=== PATIENT | female | born 1995 | race Two or more races ===

== ENCOUNTER 2024-12-04 11:13 | Outpatient (CLI) | payer SELFPAY ==
[2024-12-04 11:58] VITALS: BMI 35.2
[2024-12-04 12:01] LABS: Microscopic, Urine URINE MICROSCOPIC (MICROSCOPIC)
[2024-12-04 12:06] LABS: Appearance,Urine SL CLOUDY (Clear); Bilirubin,Urine Negative (Negative); Blood, Urine Negative (Negative); Color,Urine YELLOW (Yellow); Glucose,Urine (UA) Negative (Negative); Ketones,Urine Negative (Negative); Leukocyte Esterase,Urine Negative (Negative); Nitrate,Urine Negative (Negative); Protein,Urine Negative (Negative); Specific Gravity, Urine 1.015 (1.005-1.030); Urobilinogen,Urine 0.2 EU/dl (0.2)
--- NOTE | 2024-12-04 12:20 | US_ITS ---
PROCEDURE: US OB >= 14 WEEKS FETUS CLINICAL INDICATION: vaginal bleeding, new patient COMPARISON: No exams were available for comparison FINDINGS: Transabdominal sonographic images of the pelvis were obtained. The following parameters are obtained: From her established due date she is 16weeks 3days Viable fetus in the cephalic presentation with an anterior placenta grade 1. The cervix measures 4.68 cm heart rate: 150bpm bpm. Average ultrasound age 16 weeks 5 days BPD: 16weeks 3days HC: 16weeks 4days AC: 16weeks 5days FL: 16weeks 6days HC/AC: 1.19 FL/BPD: 0.68 FL/AC: 0.21 Growth percentile: Amniotic fluid: MVP 2.84 cm No obvious anomalies evident. profile seen, stomach, bladder, kidneys, three-vessel cord, four chamber heart appear normal. IMPRESSION: 1. Viable fetus in the cephalic presentation with an anterior placenta grade 1. 2. The fluid is within normal limits with an MVP 2.84 cm. 3. Limited anatomical scan appears normal. 4. No obvious cause for vaginal bleeding. No placenta previa. 5. biometry is consistent with the dates. Suggest repeat scan in 4 weeks for complete anatomy. Dictated by: Ab Constantino MD 12/04/2024 13:35 Ab Constantino MD in [facility] 12/04/2024 13:35
[2024-12-04 12:25] LABS: Bacteria,Urine Trace /lpf
[2024-12-04 12:27] LABS: Phencyclidine Screen,Urine Negative ng/ml (<25)
[2024-12-04 12:32] LABS: Amphetamine/Metha Screen,Urine Negative ng/ml (<1000)
[2024-12-04 12:33] LABS: Barbiturates Screen,Urine Negative ng/ml (<200); Benzodiazepines Screen,Urine Negative ng/ml (<200)
[2024-12-04 12:34] LABS: Cannabinoid Screen,Urine Negative ng/ml (<50)
[2024-12-04 12:37] LABS: Cocaine Screen,Urine Negative ng/ml (<300)
[2024-12-04 12:38] LABS: Methadone Screen,Urine Negative ng/ml (<300); Opiate Screen,Urine Negative ng/ml (<300)
[2024-12-04 12:47] VITALS: BP 110/70; PULSE 77; RESP 17; TEMP 36.7; O2SAT 98; BMI 35.2
[2024-12-04 13:33] LABS: HIV 1 Ab ND; HIV 2 Ab ND
[2024-12-04 13:34] LABS: Basophils % 0.3 % (0.1-2.0); Eosinophils # 0.1 Kmm3 (0.0-0.4); Eosinophils % 1.8 % (0.1-12.0); Hematocrit 39.6 % (37.0-47.0); Hemoglobin 12.8 g/dL (12.2-16.2); Immature Granulocytes # 0.03 10^3uL; Immature Granulocytes % 0.5 %; Lymphocytes # 1.3 K/mm3 (0.7-4.5); Mean Corpuscular HGB Conc 32.3 g/dL (31.8-35.4); Mean Corpuscular Hemoglobin 27.5 pg (27.0-31.2); Mean Platelet Volume 9.3 fl (7.4-10.4); Monocytes # 0.3 K/mm3 (0.1-1.0); Monocytes % 5.3 % (1.7-9.3); Neutrophils # 4.5 K/mm3 (1.8-7.8); Neutrophils % 72.1 % (37.0-80.0); Nucleated Red Blood Cells # 0 10^3/uL; Nucleated Red Blood Cells % 0 %; Platelet Count 262 K/mm3 (142-424); Red Blood Count 4.66 M/mm3 (4.20-5.40); Red Cell Distribution Width 13.1 % (11.5-17.5); Red Cell Distribution Width-SD 40.3 fL; White Blood Count 6.3 K/mm3 (4.8-10.8)
[2024-12-05 09:13] LABS: HIV Screen 4th Generation wRfx Non Reactive (Non Reactive); Hepatitis B Surface Antigen Negative (Negative); Hepatitis C Antibody Non Reactive (Non Reactive); Rubella Antibodies, IgG 1.07 index (Immune >0.99); Varicella Zoster IgG Reactive (Non Reactive)
[2024-12-05 12:18] LABS: Rapid Plasma Reagin Ab Titer Non Reactive titer (NonRea<1:1)
== END 2024-12-04 13:55 | disposition home or self-care (01) ==
LOC: OBOUT 11:25 → OB 11:27
PROVIDERS: Visit Provider Obstetrics & Gynecology
DX: O46.92 Antepartum hemorrhage, unspecified, second trimester (principal); O26.892 Other specified pregnancy related conditions, second trimester; R10.9 Unspecified abdominal pain; Z3A.16 16 weeks gestation of pregnancy
CPT/HCPCS: 36415; 76805; 80307; 81001; 85025; 86593; 86762; 86787; 86803; 86850; 87340; 99212; G0463

== ENCOUNTER 2025-01-11 12:36 | Outpatient (CLI) | payer SELFPAY ==
--- NOTE | 2025-01-11 13:00 | US_ITS ---
PROCEDURE: US OB >= 14 WEEKS FETUS CLINICAL INDICATION: 20 week Anatomy Scan COMPARISON: US US OB >= 14 WEEKS FETUS from 12/04/2024 FINDINGS: Transabdominal sonographic images of the pelvis were obtained. From her established due date she is 21 weeks 6 days. Single viable intrauterine gestation. Breech position. Placenta: Anteriorplacenta grade 1. There is an average amount of fluid. The cervix appears satisfactory. Closed and measuring 4.0 cm in length. Complete survey performed and was unremarkable on the submitted images as in PACS. No discrete anomalies identified on survey imaging by technologist. Active fetus. Three-vessel cord with satisfactory umbilical cord insertion. 4- chamber heart noted. Situs, aortic arch, LVOT, RVOT, three-vessel view appear normal. Survey of brain & ventricles Unremarkable. Cerebellum, thalamus, choroid plexus, cisterna magna appear normal. Face and neck survey unremarkable. Profile, nasion, lips and nose appeared normal. Diaphragm and chest views unremarkable. Abdomen: Both kidneys noted and unremarkable. Stomach and bladder noted and satisfactory. Spine: Survey of the spine satisfactory with no anomalies identified nor imaged. Cervical, thoracic, lower spine appear normal. Both arms and legs noted. Amniotic Fluid: Adequate. MVP 8.81 cm. Measurements: Average ultrasound age 21weeks 3days. Estimated due date by ultrasound age 1105/21/2025. Estimated weight 470g BPD = 20weeks 0 days HC = 20weeks 4days AC = 22weeks 2days FL = 22weeks 4days Growth Percentile= 53 Heart Rate = 160bpm Cerebellum = 20weeks 4days Humerus = 23weeks 3days HC/AC is 1.05 FL/BPD is 0.84 FL/AC is 0.23 IMPRESSION: 1. Viable fetus in the breech presentation with an anterior placenta grade 1. 2. The fluid is within normal limits with an MVP 8.81 cm. 3. Anatomical scan appears normal. 4. head appears somewhat small and would suggest follow-up in 6- 8 weeks. Dictated by: Ab Constantino MD 01/12/2025 08:37 Ab Constantino MD in [facility] 01/12/2025 08:37
== END 2025-01-11 23:59 | disposition home or self-care (01) ==
LOC: RAD 12:37
PROVIDERS: PCP Obstetrics & Gynecology; Visit Provider Obstetrics & Gynecology
DX: O32.1XX0 Maternal care for breech presentation, not applicable or unspecified (principal); O36.5920 Maternal care for other known or suspected poor fetal growth, second trimester, not applicable or unspecified; Z36.3 Encounter for antenatal screening for malformations; Z3A.21 21 weeks gestation of pregnancy
CPT/HCPCS: 76805

== ENCOUNTER 2025-02-22 13:04 | Outpatient (CLI) | payer SELFPAY ==
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
== END 2025-02-22 23:59 | disposition home or self-care (01) ==
LOC: RAD 13:06
PROVIDERS: Visit Provider Obstetrics & Gynecology
DX: Z34.82 Encounter for supervision of other normal pregnancy, second trimester (principal); R10.11 Right upper quadrant pain; Z3A.27 27 weeks gestation of pregnancy
CPT/HCPCS: 76816

== ENCOUNTER 2025-03-14 10:47 | Outpatient (CLI) | payer SELFPAY ==
[2025-03-14 12:31] LABS: Hematocrit 34.8 % (37.0-47.0); Hemoglobin 11.5 g/dL (12.2-16.2); Immature Granulocytes % 0.4 %; Mean Corpuscular HGB Conc 33.0 g/dL (31.8-35.4); Mean Corpuscular Hemoglobin 28.1 pg (27.0-31.2); Mean Corpuscular Volume 85.1 fl (81-99); Nucleated Red Blood Cells % 0 %; Platelet Count 326 K/mm3 (142-424); Red Blood Count 4.09 M/mm3 (4.20-5.40); Red Cell Distribution Width-SD 38.5 fL; White Blood Count 5.0 K/mm3 (4.8-10.8)
[2025-03-14 13:41] LABS: Glucose 1 Hour 124 mg/dL (74-100)
[2025-03-14 14:41] LABS: RPR W/RFX Titers Nonreactive (Nonreactive)
== END 2025-03-14 23:59 | disposition home or self-care (01) ==
LOC: LAB 10:47
PROVIDERS: Visit Provider Obstetrics & Gynecology
DX: Z34.90 Encounter for supervision of normal pregnancy, unspecified, unspecified trimester (principal); Z3A.00 Weeks of gestation of pregnancy not specified
CPT/HCPCS: 36415; 82947; 85025; 86592

== ENCOUNTER 2025-03-20 16:09 | Observation (INO) | payer SELFPAY ==
[2025-03-20] VITALS (11 sets, daily range): BP systolic 102–147; BP diastolic 53–73; PULSE 74–98; RESP 15–22; TEMP 36.9–37.2; O2SAT 94–100; BMI 41.3; BMI 36.3
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
[2025-03-20 16:35] LABS: Hematocrit 36.8 % (37.0-47.0); Hemoglobin 12.3 g/dL (12.2-16.2); Immature Granulocytes % 1.4 %; Mean Corpuscular HGB Conc 33.4 g/dL (31.8-35.4); Mean Corpuscular Hemoglobin 28.1 pg (27.0-31.2); Mean Corpuscular Volume 84.2 fl (81-99); Nucleated Red Blood Cells % 0 %; Platelet Count 364 K/mm3 (142-424); Red Blood Count 4.37 M/mm3 (4.20-5.40); Red Cell Distribution Width-SD 38.5 fL; White Blood Count 6.6 K/mm3 (4.8-10.8)
[2025-03-20 16:36] LABS: VBG HCO3 20.9 mmol/L (23-30); VBG PCO2 33.1 mmol/L (35-51); VBG PH 7.42 mmol/L (7.31-7.41); VBG PO2 74.4 mmol/L (28-40)
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
[2025-03-20 16:39] LABS: Lactate Venous 2.3 mmol/L (0.4-2.0)
[2025-03-20 16:42] LABS: Albumin Level 3.8 g/dl (3.5-5.0); Chloride 105 mmol/L (98-107); Potassium 3.6 mmoL/L (3.5-5.1); Sodium 135 mmol/L (136-145)
[2025-03-20 16:44] LABS: Activated Partial Thrombo Time 26.4 seconds (22.8-30.6); Blood Urea Nitrogen 5 mg/dl (7-17); Creatinine Clearance Estimated 175 mL/min (50-200); Creatinine,Serum 0.40 mg/dl (0.52-1.04); Estimated Glomerular Filt Rate 191 ml/min (>60); GFR (African American) 232 ML/MIN (>60); INR 0.96 (0.9-1.1); Prothrombin Time 10.7 seconds (10.1-12.5)
[2025-03-20 16:45] LABS: Alanine Aminotransferase 20 U/L (12-78); Albumin/Globulin Ratio 1.2 (1.1-1.8); Alkaline Phosphatase 90 U/L (38-126); Anion Gap 12.6 mEq/L (5-15); Aspartate Amino Transferase 41 U/L (14-36); Bilirubin,Total 0.3 mg/dl (0.2-1.3); Calcium 9.2 mg/dl (8.4-10.2); Carbon Dioxide 21 mmol/L (22.0-30.0); Globulin 3.2 g/dL (1.3-3.2); Glucose 138 mg/dl (74-100); Lipase 82 U/L (23-300); Magnesium 1.4 mg/dl (1.6-2.3); Total Protein,Serum 7.0 g/dl (6.3-8.2)
[2025-03-20] MEDS: SODIUM CHLORIDE 0.9% 10ML SYR (RAD ONLY) 10 ML IV (16:49)
[2025-03-20] MEDS: 0.9 % SODIUM CHLORIDE 50 ML VIAL IV (16:49)
[2025-03-20] MEDS: IOPAMIDOL-370 (76%);100ML BOTTLE 140 ML IV (16:50)
[2025-03-20 16:57] LABS: Troponin I < 0.01 ng/ml (0.00-0.034)
[2025-03-20] MEDS: MORPHINE 4MG/ML SYRINGE 4 MG IV (17:02)
[2025-03-20] MEDS: ONDANSETRON 4MG/2ML VIAL 4 MG IV (17:02)
[2025-03-20] MEDS: LACTATED RINGERS 1000ML 1,000 ML 999 ML IV (17:06)
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
--- NOTE | 2025-03-20 17:15 | ECG_ITS ---
APPROVED REPORT Exam: Resting ECG HR:85 bpm ECG Measurements Heart Rate 85 AXES KS 139 P 22 QRSd 84 QRS 30 QT 361 T 9 QTc 403 Conclusion SINUS RHYTHM NONSPECIFIC T-WAVE ABNORMALITY BORDERLINE ECG UNCONFIRMED REPORT Electronically signed by : FLAKITO HINKLE, 03/21/2025 06:39:06
[2025-03-20 18:06] LABS: Amphetamine/Metha Screen,Urine Negative ng/ml (<1000)
[2025-03-20 18:07] LABS: Barbiturates Screen,Urine Negative ng/ml (<200); Benzodiazepines Screen,Urine Negative ng/ml (<200)
[2025-03-20 18:10] LABS: Methadone Screen,Urine Negative ng/ml (<300); Opiate Screen,Urine Positive ng/ml (<300)
[2025-03-20 18:11] LABS: Phencyclidine Screen,Urine Negative ng/ml (<25)
--- NOTE | 2025-03-20 18:30 | PC.NURSE ---
OB RN at bedside. Heart tones noted 140-150's good accelerations noted during monitoring. One contraction noted during 10 minute period. Patient denies feeling contraction. Abdomen soft on palpation.
[2025-03-20] MEDS: ACETAMINOPHEN 500MG TAB 1000 MG PO (18:44)
--- NOTE | 2025-03-20 19:01 | PC.NURSE ---
paged OB at this time.
--- NOTE | 2025-03-20 19:08 | PC.NURSE ---
call made to [facility] for bed assignment
--- NOTE | 2025-03-20 19:08 | PC.NURSE ---
house called for bed
--- NOTE | 2025-03-20 19:43 | PC.NURSE ---
Report given to Eloy RN
[2025-03-20] MEDS: LACTATED RINGERS 1000ML 1,000 ML 80 ML IV (20:00)
[2025-03-20 20:30] LABS: Reflex Lactic Add Lactic Reflex
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
[2025-03-20 21:15] LABS: Lactic Acid Follow Up (RFLX 1) 1.2 mmol/L (0.7-2.1)
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
[2025-03-21 11:02] LABS: Microscopic, Urine URINE MICROSCOPIC (MICROSCOPIC)
[2025-03-21 11:19] LABS: Bilirubin,Urine Negative (Negative); Color,Urine YELLOW (Yellow); Glucose,Urine (UA) Negative (Negative); Ketones,Urine Negative (Negative); Leukocyte Esterase,Urine 2+ (Negative); PH,Urine 5.5 (5.0-8.5); Protein,Urine Negative (Negative); Specific Gravity, Urine >= 1.030 (1.005-1.030); Urobilinogen,Urine 0.2 EU/dl (0.2)
[2025-03-21 11:27] LABS: Amorphous Sediment,Urine 1+ /lpf; Bacteria,Urine 3+ /lpf; Calcium Oxalate Crystals,Urine Trace /lpf; Squamous Epithelial Cell,Urine 20-50 #/hpf (0-5)
== END 2025-03-21 11:28 | disposition home or self-care (01) ==
LOC: ER 19:08 → OB 21:02
PROVIDERS: Admitting Provider Obstetrics & Gynecology; Emergency Provider Student in an Organized Health Care Education/Training Program; PCP Obstetrics & Gynecology; Visit Provider Obstetrics & Gynecology
DX: Z04.1 Encounter for examination and observation following transport accident (principal); V49.9XXA Car occupant (driver) (passenger) injured in unspecified traffic accident, initial encounter; Z87.59 Personal history of other complications of pregnancy, childbirth and the puerperium; Z3A.32 32 weeks gestation of pregnancy
CPT/HCPCS: 36415; 59025; 70450; 70496; 70498; 71045; 71275; 72125; 72128; 72131; 72170; 73552; 73562; 74174; 76819; 80053; 80307; 81001; 82803; 83605; 83690; 83735; 84484; 85025; 85610; 85730; 86850; 87086; 93005; 96361; 96374; 96375; 99285; G0378; G0390; J2270; J2405; J7120; Q9967

== ENCOUNTER 2025-04-11 11:00 | Outpatient (CLI) | payer SELFPAY | END 2025-04-11 23:59 | disposition home or self-care (01) | LOC: LAB.DROPOF 04-12 01:57 | PROVIDERS: PCP Obstetrics & Gynecology; Visit Provider Obstetrics & Gynecology | DX: Z34.93 Encounter for supervision of normal pregnancy, unspecified, third trimester (principal); R31.9 Hematuria, unspecified; R80.9 Proteinuria, unspecified; Z3A.00 Weeks of gestation of pregnancy not specified | CPT/HCPCS: 87086 ==

== ENCOUNTER 2025-04-17 11:31 | Outpatient (CLI) | payer SELFPAY | END 2025-04-17 23:59 | disposition home or self-care (01) | LOC: LAB.DROPOF 04-18 09:17 | PROVIDERS: PCP Obstetrics & Gynecology; Visit Provider Obstetrics & Gynecology | DX: Z34.93 Encounter for supervision of normal pregnancy, unspecified, third trimester (principal); Z3A.00 Weeks of gestation of pregnancy not specified | CPT/HCPCS: 86403 ==

== ENCOUNTER 2025-05-01 14:28 | Observation (INO) | payer SELFPAY ==
[2025-05-01 12:01] VITALS: BMI 37.8
[2025-05-01 12:19] LABS: Microscopic, Urine URINE MICROSCOPIC (MICROSCOPIC)
[2025-05-01 12:20] LABS: Bilirubin,Urine Negative (Negative); Color,Urine YELLOW (Yellow); Glucose,Urine (UA) Negative (Negative); Ketones,Urine Negative (Negative); Leukocyte Esterase,Urine 3+ (Negative); PH,Urine 6.5 (5.0-8.5); Protein,Urine Negative (Negative); Specific Gravity, Urine <= 1.005 (1.005-1.030); Urobilinogen,Urine 0.2 EU/dl (0.2)
[2025-05-01 12:21] VITALS: BP 125/81; PULSE 80; RESP 18; TEMP 36.7; O2SAT 98; BMI 37.8
[2025-05-01 12:35] LABS: Bacteria,Urine Trace /lpf
[2025-05-01 15:52] LABS: Hematocrit 40.6 % (37.0-47.0); Hemoglobin 13.5 g/dL (12.2-16.2); Immature Granulocytes % 0.3 %; Mean Corpuscular HGB Conc 33.3 g/dL (31.8-35.4); Mean Corpuscular Hemoglobin 28.1 pg (27.0-31.2); Mean Corpuscular Volume 84.4 fl (81-99); Nucleated Red Blood Cells % 0 %; Platelet Count 304 K/mm3 (142-424); Red Blood Count 4.81 M/mm3 (4.20-5.40); Red Cell Distribution Width-SD 42.4 fL; White Blood Count 6.2 K/mm3 (4.8-10.8)
[2025-05-01] MEDS: LACTATED RINGERS 1000ML 1,000 ML 999 ML IV (17:16)
--- NOTE | 2025-05-02 07:53 | P.HPDS_ITS ---
General Admission date:: 05/01/25 *Admission Date: 05/01/25 *Chief complaint: Contractions *History of present illness: Mikki Ruff is a very pleasant 29-year-old G2, P1 who presented to my office at 37 weeks and 6 days gestation with contractions and she is noted to make cervical change from 1 cm to 3 cm. Her contractions were very painful and she was sent to labor and delivery for evaluation. She endorsed good mo vement, denied leakage of fluid or vaginal bleeding. She has an ELIOT 05/16/2025 which is based on a 19-week ultrasound which was consistent with her last menstrual period. She has had 1 prior vaginal delivery. Her has been complicated by obesity and she is getting NSTs. She was scheduled for an induction on 05 09 with planned delivery on 05 10 at 39 weeks gestation. [facility] Disclaimer: The information contained in this section may have been updated after the patient was seen, as this information can be updated by other users. Medical History Maternal morbid obesity in first trimester, antepartum Hematuria with proteinuria Encounter for related examination in third trimester Right upper quadrant abdominal pain Encounter for supervision of other normal , second trimester Surgical History History of D&C Family History Other No significant family history Social History Smoking Status: Unknown if ever smoked alcohol intake: never current occupational status: unemployed Travel in the last 8 weeks?: None Other Medical History Have you received the Flu Vaccine for this season: No Have you received the Pneumonia Vaccine: No Review of Systems Review of Systems Review of systems (narrative): Review of Systems Constitutional: Denies fever, chills, and sweats Eyes: Denies vision change/ pain Respiratory: Denies cough and shortness of breath Cardiovascular: Denies chest pain and lightheadedness Gastrointestinal: Admits abdominal pain with contractions. Denies nausea, vomiting. Genitourinary: Denies dysuria and incontinence Musculoskeletal: Denies shoulder pain and back pain Neurological: Denies change in speech or headaches Exam Data for Last 24 hours Vital signs and Labs for Last 24 Hours: Temp Pulse Resp BP Pulse Ox O2 Del Method 98.1 F 80 18 125/81 98 Room Air 05/01/25 12:21 05/01/25 12:21 05/01/25 12:21 05/01/25 12:21 05/01/25 12:21 05/01/25 12:21 Laboratory Results - last 24 hr 05/01/25 12:13: Urine Color Yellow, Urine Appearance Sl cloudy, Urine pH 6.5, Ur Specific [place] <= 1.005, Urine Protein Negative, Urine Glucose (UA) Negative, Urine Ketones Negative, Urine Blood Trace-l, Urine Nitrate Negative, Urine Bilirubin Negative, Urine Urobilinogen 0.2, Ur Leukocyte Esterase 3+ A, Urine RBC None, Urine WBC 5-10, Ur Squamous Epith Cells 5-10, Urine Bacteria Trace 05/01/25 14:49: WBC 6.2, RBC 4.81, Hgb 13.5, Hct 40.6, MCV 84.4, MCH 28.1, MCHC 33.3, RDW 13.7, Plt Count 304, MPV 9.8, Neut % (Auto) 69.4, Lymph % (Auto) 22.8, [place] % (Auto) 5.3, Eos % (Auto) 1.9, Baso % (Auto) 0.3, Neut # (Auto) 4.3, Lymph # (Auto) 1.4, [place] # (Auto) 0.3, Eos # (Auto) 0.1, Baso # (Auto) 0.0 I & O for Last 24 hours: Intake & Output 04/29/25 04/30/25 05/01/25 05/02/25 23:59 23:59 23:59 23:59 Intake Total 1000 / 1000 Balance 1000 / 1000 Weight 220 lb Narrative: General: patient is alert oriented in no acute distress and responds appropriately to questions. HEENT: NCAT, EOMI, moist mucous membranes, neck supple with full ROM Cardiovascular: RRR +S1/S2, no murmurs or rubs Pulmonary: Clear to auscultation bilaterally, nonlabored breathing, symmetric chest rise Abdominal: Gravid abdomen appropriate for gestation. No guarding, rebound, or tenderness noted. Extremities: trace edema, no tenderness or cyanosis noted Skin: Normal turgor, intact, warm. Negative for erythema, pallor, petechia, or lesions Neurologic: Negative for sensory or motor deficit Psychiatric: Normal affect, normal thought process, good judgment and insight, no depression or anxious mood appreciated. *Routine HEENT Exam Head: Present normocephalic and atraumatic Eye: Present EOMI, PERRL and normal accommodation; Absent conjunctival icterus, scleral injection, nystagmus or exophthalmos ENT: Present mucous membranes moist *Routine Respiratory Exam Respiratory: Present CTA bilaterally, normal respiratory effort, able to speak in complete sentences and symmetric chest movement; Absent accessory muscle use, decreased breath sounds, rales, respiratory distress, wheezes, distant breath sounds or diminished air movement *Routine Cardiovascular Exam Cardiovascular: Present RRR, Normal S1 and Normal S2; Absent murmur or gallop *Routine Abdominal Exam Abdominal: Present soft and normoactive bowel sounds; Absent tenderness, distended, rebound or guarding *Routine Rectal Exam Rectal:: deferred *Routine Genitalia Exam Genitalia:: normal female Meds Home Medications and Allergies Home Medications ?Medication ?Instructions ?Recorded ?Confirmed ?Type vits no.126-ferrous fum See Rx Instructions . Route 04/11/25 05/01/25 Rx 28 mg iron-folic acid 800 mcg .COMPLEX #30 tabs tablet (Classic ) New Prescriptions to Start Prescriptions: Allergies Allergy/AdvReac Type Severity Reaction Status Date / Time No Known Allergies Allergy Verified 05/01/25 10:11 Hospital Course Hospital Course Hospital Course: Patient was admitted and observed, no cervical change noted and contractions were noted to physical out. Induction changed from an overnight induction from May 09 with planned delivery on the . The patient will come in on May 10 at 4 to 5:00 in the morning for Pitocin induction. Patient was made aware. Follow-up was given for May 07 in the office. Patient was given strict instructions to return with any increasing contractions, leakage of fluid, vaginal bleeding, or decreased movement. Patient voiced understanding Results Data Completed and Pending Labs on day of discharge: Labs from last 24 hours 05/01/25 05/01/25 14:49 12:13 WBC 6.2 RBC 4.81 Hgb 13.5 Hct 40.6 MCV 84.4 MCH 28.1 MCHC 33.3 RDW 13.7 Plt Count 304 MPV 9.8 Neut % (Auto) 69.4 Lymph % (Auto) 22.8 [place] % (Auto) 5.3 Eos % (Auto) 1.9 Baso % (Auto) 0.3 Neut # (Auto) 4.3 Lymph # (Auto) 1.4 [place] # (Auto) 0.3 Eos # (Auto) 0.1 Baso # (Auto) 0.0 Urine Color Yellow Urine Appearance Sl cloudy Urine pH 6.5 Ur Specific [place] <= 1.005 Urine Protein Negative Urine Glucose (UA) Negative Urine Ketones Negative Urine Blood Trace-l Urine Nitrate Negative Urine Bilirubin Negative Urine Urobilinogen 0.2 Ur Leukocyte Esterase 3+ A Urine RBC None Urine WBC 5-10 Ur Squamous Epith Cells 5-10 Urine Bacteria Trace Blood Type Pending Antibody Screen Pending Discharge Plan Disposition Patient Disposition: Home, Self-Care Condition: Good Follow up Plan Follow up with: Rosana Molina DO [Staff Physician, REGIONAL EDUCATION COORDINATOR] - 05/07/25 8:30 am Prescriptions/Medication Reconciliation: Continued Classic 28 mg iron- 800 mcg tablet See Rx Instructions .ROUTE .COMPLEX Qty: 30 4RF Dose Instruction: TAKE 1 TABLET BY MOUTH ONCE DAILY Rx Instructions: TAKE 1 TABLET BY MOUTH ONCE DAILY Problem Reconciliation Problems Reviewed?: Yes Patient Discharge Instructions ACTIVITY: Ambulate as tolerated DIET: regular diet Additional Instructions: Please return to labor and delivery for any persistent contractions that begin to get more painful or for decreased movement or leakage of fluid. Questions or concerns: It is my privilege to be your doctor. Please let me know if you have other questions or concerns. Rosana Molina DO [facility] Specialist [place], [place] [address] Patient Instructions: How to Do Kick Counts, Antepartum Care, False Labor Print Language: Ethiopian Providers Primary Care Provider: Provider,Referral Admit Provider: Ab Constantino Attending Provider: Ab Constantino
[2025-05-02 10:40] LABS: RPR W/RFX Titers Nonreactive (Nonreactive)
== END 2025-05-02 13:59 | disposition home or self-care (01) ==
LOC: OBOUT 14:29 → OB 14:29
PROVIDERS: Obstetrics & Gynecology; Admitting Provider Nurse Practitioner Obstetrics & Gynecology; Visit Provider Nurse Practitioner Obstetrics & Gynecology
DX: O36.8330 Maternal care for abnormalities of the fetal heart rate or rhythm, third trimester, not applicable or unspecified (principal); O99.213 Obesity complicating pregnancy, third trimester; E66.9 Obesity, unspecified; Z3A.37 37 weeks gestation of pregnancy
CPT/HCPCS: 59025; 81001; 85025; 86592; 86850; 87086; 96360; 96361; 99212; G0378; G0463; J7120

== ENCOUNTER 2025-05-07 01:34 | Inpatient (IN) | payer SELFPAY ==
[2025-05-07] VITALS (9 sets, daily range): BP systolic 101–129; BP diastolic 53–60; PULSE 75–118; RESP 16–20; TEMP 36.7–39.3; O2SAT 98–99; BMI 46.8; BMI 37.8
[2025-05-07] MEDS: LACTATED RINGERS 1000ML 1,000 ML 500 ML IV (01:00)
[2025-05-07] MEDS: ACETAMINOPHEN 500MG TAB 1000 MG PO ×3 (01:13→17:57)
[2025-05-07 01:17] LABS: Hematocrit 39.5 % (37.0-47.0); Hemoglobin 13.4 g/dL (12.2-16.2); Immature Granulocytes % 0.5 %; Mean Corpuscular HGB Conc 33.9 g/dL (31.8-35.4); Mean Corpuscular Hemoglobin 28.4 pg (27.0-31.2); Mean Corpuscular Volume 83.7 fl (81-99); Nucleated Red Blood Cells % 0 %; Platelet Count 275 K/mm3 (142-424); Red Blood Count 4.72 M/mm3 (4.20-5.40); Red Cell Distribution Width-SD 41.1 fL; White Blood Count 11.7 K/mm3 (4.8-10.8)
[2025-05-07 01:26] LABS: Alanine Aminotransferase 23 U/L (12-78); Albumin Level 3.9 g/dl (3.5-5.0); Albumin/Globulin Ratio 1.1 (1.1-1.8); Alkaline Phosphatase 165 U/L (38-126); Anion Gap 12.7 mEq/L (5-15); Aspartate Amino Transferase 34 U/L (14-36); Bilirubin,Total 0.4 mg/dl (0.2-1.3); Blood Urea Nitrogen 10 mg/dl (7-17); Calcium 9.3 mg/dl (8.4-10.2); Carbon Dioxide 19 mmol/L (22.0-30.0); Chloride 104 mmol/L (98-107); Creatinine Clearance Estimated 156 mL/min (50-200); Creatinine,Serum 0.70 mg/dl (0.52-1.04); Estimated Glomerular Filt Rate 100 ml/min (>60); GFR (African American) 121 ML/MIN (>60); Globulin 3.7 g/dL (1.3-3.2); Glucose 110 mg/dl (74-100); Potassium 3.7 mmoL/L (3.5-5.1); Sodium 132 mmol/L (136-145); Total Protein,Serum 7.6 g/dl (6.3-8.2)
[2025-05-07] MEDS: OXYTOCIN/RINGERS LACTATE 30 UNITS/500 ML BAG 999 UNITS IV (01:41)
--- NOTE | 2025-05-07 01:52 | P.PCN_ITS ---
Delivery Note Delivery Date:: 05/07/25 Delivery Time:: 01:40 Anesthesia Type: None Was labor medically induced?: No Induction method: none Gestational age (weeks): 38 delivered prior to 39 weeks?: Yes Justification for early elective delivery:: Active Labor Gender: Female at 1 minute: 5 at 5 minutes: 9 AF:: Thin meconium. Delivery Procedure:: She is a 29-year-old 3 para 1 at 38 weeks 4 days gestational age. She came in in active labor. She rapidly progressed to full dilation. Her membranes were ruptured and there was thin meconium. She then delivered spontaneously a liveborn female child at 1:40 AM on the morning of May 07, 2025. I delivered the head the anterior shoulder delivered followed by the rest the 's body atraumatically. There was a cord around the shoulder that was wrapped around the baby's waist. This was easily reduced. The oropharynx and nasopharynx were bulb suctioned and the baby was then placed on the warmer for further care. The nurses assigned Apgars of 5 at 1 minute and 9 at 5 minutes. Patient received IV oxytocin and using gentle traction the cord and countertraction the fundus I was able to easily deliver the placenta intact 4 minutes after delivery. He had a normal three-vessel cord. There were no perineal or vaginal lacerations. She has a positive blood, she is rubella immune and was group B streptococcus negative. She had a temperature of 102 during labor and received IV fluids as well as Tylenol. Will continue to watch her closely. If she remains febrile we will do a septic workup and start antibiotics. It is possible she had a chorioamnionitis as there was very little fluid around the baby. Her animal husbandry teacher is Dr. Burnett. Placental Delivery Description: Spontaneous
--- NOTE | 2025-05-07 02:02 | EXP.HP ---
History of Present Illness *Admission Date: 05/07/25 *Reason for visit:: Active labor *History of present illness: She is a 29-year-old 3 para 1 at 38 weeks and 4 days gestational age. She arrived in active labor and rapidly progressed to full dilation. She had a temperature of 102 ?F while in labor and may have a chorioamnionitis that caused her labor. A positive blood Rubella immune Group B streptococcus negative PFSH PFS Disclaimer: The information contained in this section may have been updated after the patient was seen, as this information can be updated by other users. Medical History Maternal morbid obesity in first trimester, antepartum Hematuria with proteinuria Encounter for related examination in third trimester Right upper quadrant abdominal pain Encounter for supervision of other normal , second trimester Surgical History History of D&C Family History No significant family history Social History Smoking Status: Unknown if ever smoked alcohol intake: never current occupational status: unemployed Travel in the last 8 weeks?: None Have you lived/traveled outside US in past 30 days?: No Contact w/someone who lives/traveled outside US past 30 days?: No Exposure to someone with infectious disease in past 14 days?: No Do you have a fever (greater than 100.4 F or 38 C)?: No Have you tested positive for COVID-19?: No Exposed to someone with COVID-19 in past 14 days?: No Do you have a sore throat?: No Do you have a cough?: No Do you have any weakness?: No Do you have any diarrhea?: No Are you experiencing any unusual bleeding?: No Do you have any muscle aches/pain?: No Do you have any abdominal pain?: No Are you experiencing loss of taste or smell?: No Other Medical History Have you received the Flu Vaccine for this season: No Have you received the Pneumonia Vaccine: No Review of Systems Review of Systems Review of systems:: pertinent systems reviewed and negative unless documented below Meds Home Medications and Allergies Home Medications ?Medication ?Instructions ?Recorded ?Confirmed ?Type vits no.126-ferrous fum See Rx Instructions .Route 04/11/25 05/01/25 Rx 28 mg iron-folic acid 800 mcg .COMPLEX #30 tabs tablet (Classic ) New Prescriptions to Start Prescriptions: Allergies Allergy/AdvReac Type Severity Reaction Status Date / Time No Known Allergies Allergy Verified 05/01/25 10:11 Exam Data for Last 24 hours Vital signs and Labs for Last 24 Hours: Laboratory Results - last 24 hr 05/07/25 00:55: WBC 11.7 H, RBC 4.72, Hgb 13.4, Hct 39.5, MCV 83.7, MCH 28.4, MCHC 33.9, RDW 13.5, Plt Count 275, MPV 9.5, Neut % (Auto) 83.8 H, Lymph % (Auto) 11.6, [place] % (Auto) 3.5, Eos % (Auto) 0.3, Baso % (Auto) 0.3, Neut # (Auto) 9.8 H, Lymph # (Auto) 1.4, [place] # (Auto) 0.4, Eos # (Auto) 0.0, Baso # (Auto) 0.0, Sodium 132 L, Potassium 3.7, Chloride 104, Carbon Dioxide 19 L, Anion Gap 12.7, BUN 10, Creatinine 0.70, Estimated Creat Clear 156, Estimated GFR 100, Est GFR ( Amer) 121, Glucose 110 H, Calcium 9.3, Total Bilirubin 0.4, AST 34, ALT 23, Alkaline Phosphatase 165 H, Total Protein 7.6, Albumin 3.9, Globulin 3.7 H, Albumin/Globulin Ratio 1.1 I & O for Last 24 hours: Intake & Output 05/04/25 05/05/25 05/06/25 05/07/25 11:59 10:59 11:59 11:59 Weight 180 lb Constitutional Constitutional: no acute distress *Routine HEENT Exam Head: Present normocephalic Eye: Present EOMI and PERRL ENT: Present mucous membranes moist *Routine Neck Exam Neck: Present supple; Absent lymphadenopathy *Routine Respiratory Exam Respiratory: Present CTA bilaterally *Routine Cardiovascular Exam Cardiovascular: Present RRR *Routine Abdominal Exam Abdominal: Present soft and normoactive bowel sounds; Absent tenderness *Routine Rectal Exam Rectal:: deferred *Routine Genitalia Exam Genitalia:: deferred *Routine Extremities Exam Extremities: Absent cyanosis, clubbing or edema *Routine Skin Exam Skin: Present warm; Absent rash *Routine Neurological Exam Neurological: Present alert and oriented X3 Assessment and Plan *Assessment and plan (1) Maternal obesity affecting , antepartum: Status: Acute Qualifiers: Obesity type affecting : other obesity due to excess calories Qualified Code(s): O99.210 - Obesity complicating , unspecified trimester; E66.09 - Other obesity due to excess calories Category: Medical Code(s): O99.210 - Obesity complicating , unspecified trimester (2) Normal delivery: Status: Acute Category: Medical Code(s): O80 - Encounter for full-term uncomplicated delivery (3) Chorioamnionitis, delivered, current hospitalization: Status: Acute Category: Medical Code(s): O41.1290 - Chorioamnionitis, unspecified trimester, not applicable or unspecified Plan He is admitted for labor and delivery.
[2025-05-07] MEDS: CLINDAMYCIN PHOSPHATE/D5W 900 MG/50 ML PIGGYBACK 100 MG IV (02:50)
[2025-05-07] MEDS: AMPICILLIN SODIUM 2 GM in 0.9 % SODIUM CHLORIDE 100 ML IV ×2 (04:08→08:51)
[2025-05-07] MEDS: WITCH HAZEL 40 PADS/BOX 1 EACH TP (04:29)
[2025-05-07] MEDS: BENZOCAINE-MENTHOL SPRAY 56GM CAN TP (04:29)
[2025-05-07] MEDS: IBUPROFEN 400 MG TABLET 800 MG PO ×2 (04:32→17:58)
[2025-05-07] MEDS: GENTAMICIN SULFATE 350 MG in 0.9 % SODIUM CHLORIDE 100 ML 100 MG IV (04:46)
--- NOTE | 2025-05-07 09:14 | P.CONPHA_ITS ---
Pharmacy Consult Date: 05/07/25 Time: 09:14 Referring provider: DR. CONSTANTINO Reason for Consult:: GENTAMICIN DOSING Allergies Allergy/AdvReac Type Severity Reaction Status Date / Time No Known Allergies Allergy Verified 05/07/25 02:51 Home Medications ?Medication ?Instructions ?Recorded ?Confirmed ?Type vits no.126-ferrous fum See Rx Instructions . Route 04/11/25 05/01/25 Rx 28 mg iron-folic acid 800 mcg .COMPLEX #30 tabs tablet (Classic ) New Prescriptions to Start Prescriptions: Height: 1.63 m Weight: 99.79 kg Laboratory Results:: Laboratory Results - last 24 hr 05/07/25 00:55: WBC 11.7 H, RBC 4.72, Hgb 13.4, Hct 39.5, MCV 83.7, MCH 28.4, MCHC 33.9, RDW 13.5, Plt Count 275, MPV 9.5, Neut % (Auto) 83.8 H, Lymph % (Auto) 11.6, [place] % (Auto) 3.5, Eos % (Auto) 0.3, Baso % (Auto) 0.3, Neut # (Auto) 9.8 H, Lymph # (Auto) 1.4, [place] # (Auto) 0.4, Eos # (Auto) 0.0, Baso # (Auto) 0.0, Sodium 132 L, Potassium 3.7, Chloride 104, Carbon Dioxide 19 L, Anion Gap 12.7, BUN 10, Creatinine 0.70, Estimated Creat Clear 156, Estimated GFR 100, Est GFR ( Amer) 121, Glucose 110 H, Calcium 9.3, Total Bilirubin 0.4, AST 34, ALT 23, Alkaline Phosphatase 165 H, Total Protein 7.6, Albumin 3.9, Globulin 3.7 H, Albumin/Globulin Ratio 1.1 05/07/25 03:04: Lactate 2.0 Medical History: Medical History (Updated 05/07/25 @ 02:04 by Ab Constantino MD) Maternal morbid obesity in first trimester, antepartum Hematuria with proteinuria Encounter for related examination in third trimester Right upper quadrant abdominal pain Encounter for supervision of other normal , second trimester Assessment and Plan Assessment and plan all Dx Assessment and Plan for all problems:: Pharmacokinetic dosing service Objective: Patient: Floor: Age: 29 yo Serum creatinine: 0.7 mg/dL Height: 64.0 Inches Weight (kg): 99.79 Assessment: IBW (kg): 54.70 Dosing wt(kg): 72.7 Estimated Creatinine clearance (ml/min): 104.2 CRCL method: Cockcroft and Gault using ibw(default). Drug selected: Gentamicin Loading dose (mg): 0 Vd (liters): 21.8 (factor used: 0.3 L/kg) Roney (hr-1): 0.287 Half life (hrs): 2.42 Recommended dose: 400 mg Interval: 24 hrs Infusion time (hrs): 2.0 Predicted peak (mcg/mL): 14.0 Predicted trough (mcg/mL): 0.03 Recommendations: Give Gentamicin 400 mg q 24 hrs with an expected Cpeak of 14.0 mcg/ml and an expected Ctrough of 0.03 mcg/ml.
[2025-05-07 14:46] LABS: RPR W/RFX Titers Nonreactive (Nonreactive)
[2025-05-08 06:14] LABS: Hematocrit 34.8 % (37.0-47.0); Hemoglobin 11.5 g/dL (12.2-16.2); Immature Granulocytes % 0.5 %; Mean Corpuscular HGB Conc 33.0 g/dL (31.8-35.4); Mean Corpuscular Hemoglobin 28.2 pg (27.0-31.2); Mean Corpuscular Volume 85.3 fl (81-99); Nucleated Red Blood Cells % 0 %; Platelet Count 217 K/mm3 (142-424); Red Blood Count 4.08 M/mm3 (4.20-5.40); Red Cell Distribution Width-SD 44.1 fL; White Blood Count 12.9 K/mm3 (4.8-10.8)
[2025-05-08] MEDS: ACETAMINOPHEN 500MG TAB 1000 MG PO ×2 (09:25→17:21)
--- NOTE | 2025-05-08 10:49 | EXP.PN ---
Subjective *Date: 05/08/25 *Time: 16:35 Interval history: Mikki Ruff is a very pleasant 29-year-old G2, P2 day #1 following a normal spontaneous vaginal delivery at 38 weeks and 4 days gestation. was uncomplicated. Delivery was complicated by chorioamnionitis. She received antibiotics. She is been afebrile without leukocytosis. Infant is doing well. Routine course. She is doing well, sitting up in bed, and visiting with family this morning. -Reports pain is well-controlled -Reports she is tolerating p.o. without nausea or vomiting. -Reports her lochia is scant. -Undecided on contraception -She is bottle and breast-feeding her female -Ambulating, voiding difficulty or dysuria. Denies chest pain shortness of breath or pain in her legs. No further complaints at this time. Exam Data for Last 24 hours Vital signs and Labs for Last 24 Hours: Temp Pulse Resp BP Pulse Ox O2 Del Method 98.1 F 76 18 101/53 L 99 Room Air 05/07/25 12:30 05/07/25 12:30 05/07/25 12:30 05/07/25 12:30 05/07/25 12:30 05/07/25 12:30 Laboratory Results - last 24 hr 05/07/25 00:55: RPR w/Rflx to Titer Nonreactive 05/08/25 05:37: WBC 12.9 H, RBC 4.08 L, Hgb 11.5 L, Hct 34.8 L, MCV 85.3, MCH 28.2, MCHC 33.0, RDW 14.3, Plt Count 217, MPV 9.6, Neut % (Auto) 81.6 H, Lymph % (Auto) 13.0, [place] % (Auto) 3.1, Eos % (Auto) 1.6, Baso % (Auto) 0.2, Neut # (Auto) 10.5 H, Lymph # (Auto) 1.7, [place] # (Auto) 0.4, Eos # (Auto) 0.2, Baso # (Auto) 0.0 I & O for Last 24 hours: Intake & Output 05/05/25 05/06/25 05/07/25 05/08/25 22:59 23:59 23:59 23:59 Intake Total 1858.75 / 1858.75 Balance 1858.75 / 185.75 Weight 220 lb Microbiology Reports for the Last 24 Hours: Microbiology 05/07/25 03:04 Blood Blood Culture - Preliminary NO GROWTH AFTER 24 HOURS 05/07/25 03:04 Blood Blood Culture - Preliminary NO GROWTH AFTER 24 HOURS Narrative: General: patient is alert oriented in no acute distress and responds appropriately to questions. Appears to be in minimal pain. Sitting up in the chair and doing well HEENT: NCAT, EOMI, moist mucous membranes, neck supple with full ROM Cardiovascular: RRR +S1/S2, no murmurs or rubs Pulmonary: Clear to auscultation bilaterally, nonlabored breathing, symmetric chest rise Abdominal: Fundus at the umbilicus, firm, and tenderness appropriate for the period. Extremities: trace edema, no tenderness or cyanosis noted Skin: Normal turgor, intact, warm. Negative for erythema, pallor, petechia, or lesions Neurologic: Negative for sensory or motor deficit Psychiatric: Normal affect, normal thought process, good judgment and insight, no depression or anxious mood appreciated. Assessment and Plan *Assessment and plan (1) Chorioamnionitis, delivered, current hospitalization: Status: Acute Category: Medical Code(s): O41.1290 - Chorioamnionitis, unspecified trimester, not applicable or unspecified (2) Normal delivery: Status: Acute Category: Medical Code(s): O80 - Encounter for full-term uncomplicated delivery (3) Maternal obesity affecting , antepartum: Status: Acute Qualifiers: Obesity type affecting : other obesity due to excess calories Qualified Code(s): O99.210 - Obesity complicating , unspecified trimester; E66.09 - Other obesity due to excess calories Category: Medical Code(s): O99.210 - Obesity complicating , unspecified trimester (4) Maternal morbid obesity in first trimester, antepartum: Status: Acute Category: Medical Code(s): O99.211 - Obesity complicating , first trimester; E66.01 - Morbid (severe) obesity due to excess calories Plan Stable. PPD#1 s/p -IP. -Doing well. VSS. Serial lochia and fundal checks. -Continue with perineal ice packs for discomfort -Hemoglobin: 13.4 --> 11.5 -A+/antibody negative -Breast and bottle feeding, female infant -Contraception: undecided -Follow-up 2 weeks for routine visit -Dispo: home in 1-3 days pending mother/ status #Chorioamnionitis - GBS negative - Received antibiotics - Vital signs stable and no leukocytosis
--- NOTE | 2025-05-08 18:10 | PC.NURSE ---
here discussing bili level and POC with parents.
[2025-05-08] MEDS: IBUPROFEN 400 MG TABLET 800 MG PO (19:26)
[2025-05-09 07:50] VITALS: BP 107/61; PULSE 107; RESP 16; TEMP 37; O2SAT 98
--- NOTE | 2025-05-09 12:59 | EXP.DC.SUM ---
General Admission date:: 05/07/25 Discharge date: 05/09/25 HPI HPI HPI: She is a 29-year-old 3 para 1 at 38 weeks and 4 days gestational age. She arrived in active labor and rapidly progressed to full dilation. She had a temperature of 102 ?F while in labor and may have a chorioamnionitis that caused her labor. A positive blood Rubella immune Group B streptococcus negative Hospital Course Hospital Course Hospital Course: Mikki is a pleasant 29yo day #2 from a normal spontaneous vaginal delivery that was complicated by chorioamnionitis. She delivered a live viable female infant at 1:40 AM on 05/07/2025 Apgars were 5 and 9 at 1 and 5 minutes respectively. weight 6lb 6oz at time of delivery. She has done well and has remained afebrile throughout her course. She is eating and drinking and ambulating. She is breast and bottle feeding. Her lochia is normal. She has A Rh+ blood, she is rubella immune and was group B streptococcus negative. She will be discharged home to follow-up with Dr. Molina in 2 weeks time. She will continue with her vitamins. She will take ibuprofen as well. She was given the usual instructions with respect to limiting her activity, driving and sexual activity. She was given instructions with respect to wound care. Her condition on discharge is stable and improved. Exam Data for Last 24 hours Vital signs and Labs for Last 24 Hours: Temp Pulse Resp BP Pulse Ox O2 Del Method 98.6 F 107 H 16 107/61 L 98 Room Air 05/09/25 07:50 05/09/25 07:50 05/09/25 07:50 05/09/25 07:50 05/09/25 07:50 05/09/25 07:50 I & O for Last 24 hours: Intake & Output 05/06/25 05/07/25 05/08/25 05/09/25 23:59 23:59 23:59 23:59 Intake Total 1858.75 / 1858.75 Balance 1858.75 / 1858.75 Weight 220 lb Microbiology Reports for the Last 24 Hours: Microbiology 05/07/25 03:04 Blood Blood Culture - Preliminary NO GROWTH AFTER 48 HOURS 05/07/25 03:04 Blood Blood Culture - Preliminary NO GROWTH AFTER 48 HOURS Results Data Completed and Pending Labs on day of discharge: Preliminary micro results at discharge 05/07/25 03:04 Blood Culture - Preliminary Blood NO GROWTH AFTER 48 HOURS 05/07/25 03:04 Blood Culture - Preliminary Blood NO GROWTH AFTER 48 HOURS DS: Diagnosis Discharge Diagnosis (1) Chorioamnionitis, delivered, current hospitalization: Status: Acute Code(s): O41.1290 - Chorioamnionitis, unspecified trimester, not applicable or unspecified (2) Normal delivery: Status: Acute Code(s): O80 - Encounter for full-term uncomplicated delivery (3) Maternal obesity affecting , antepartum: Status: Acute Code(s): O99.210 - Obesity complicating , unspecified trimester Qualifiers: Obesity type affecting : other obesity due to excess calories Qualified Code(s): O99.210 - Obesity complicating , unspecified trimester; E66.09 - Other obesity due to excess calories (4) Maternal morbid obesity in first trimester, antepartum: Status: Acute Code(s): O99.211 - Obesity complicating , first trimester; E66.01 - Morbid (severe) obesity due to excess calories Meds Home Medications and Allergies Home Medications ?Medication ?Instructions ?Recorded ?Confirmed ?Type vits no.[id number] fum See Rx Instructions .Route 04/11/25 05/09/25 Rx 28 mg iron-folic acid 800 mcg .COMPLEX #30 tabs tablet (Classic ) acetaminophen 500 mg tablet 500 mg PO Q6H PRN fever or pain 05/09/25 Rx #30 tabs ibuprofen 800 mg tablet 800 mg PO Q8H PRN pain #60 tabs 05/09/25 Rx sennosides 8.6 mg tablet (Senna 8.6 mg PO BIDP PRN Constipation 05/09/25 Rx Lax) #60 tabs New Prescriptions to Start Prescriptions: acetaminophen Rosana Molina ibuprofen Rosana Molina sennosides [Senna Lax] Rosana Molina Allergies Allergy/AdvReac Type Severity Reaction Status Date / Time No Known Allergies Allergy Verified 05/07/25 02:51 Discharge Plan Disposition Patient Disposition: Home, Self-Care Discharge Order Discharge Orders: Discharge Order (Routine); Ordered 05/09/25 Ordered By: Rosana Molina Follow up Plan Follow up with: Rosana Molina DO [Staff Physician, TRANSMISSION SUPERINTENDENT] - 05/22/25 3:15 pm Prescriptions/Medication Reconciliation: New sennosides [Senna Lax] 8.6 mg Tablet 8.6 mg PO BIDP PRN (Reason: Constipation) Qty: 60 2RF ibuprofen 800 mg tablet 800 mg PO Q8H PRN (Reason: pain) Qty: 60 2RF acetaminophen 500 mg tablet 500 mg PO Q6H PRN (Reason: fever or pain) Qty: 30 3RF Continued Classic 28 mg iron- 800 mcg tablet See Rx Instructions .ROUTE .COMPLEX Qty: 30 4RF Dose Instruction: TAKE 1 TABLET BY MOUTH ONCE DAILY Rx Instructions: TAKE 1 TABLET BY MOUTH ONCE DAILY Problem Reconciliation Problems Reviewed?: Yes Patient Discharge Instructions ACTIVITY: Continue current activity DIET: regular diet Additional Instructions: Congratulations on the delivery of your sweet baby girl. It is my privilege to be your doctor and I am so thankful I could be a part of your special day. Discharge: -Take 800 mg Ibuprofen every 8 hours as needed for pain. You can also take 500-1000 mg of Tylenol in between doses, every 6-8 hours. -Colace can be taken 1-2 times per day as you need to soften your stool. Make sure to drink at least 8 cups of water per day. -Iron supplements can make you constipated. You can take iron tablets every other day if constipation is too bad. -Nothing in the vagina for 6 weeks - no intercourse, douching, tampons. No tub baths or swimming pools. -Do not lift greater than 20pounds for 2 weeks, this is the equivalent of 2 gallons of milk. -Reasons to return to L&D or call On-Call doctor - fever (greater than 100.4) - heavy vaginal bleeding (soaking through 1 pad in less than 2 hours or passing clots that are egg sized) - vaginal discharge (malodorous and/or purulent) - severe headaches, leg tenderness/edema, or any other symptoms that warrant immediate medical attention. depression/blues - Normal to feel anxious/overwhelmed for first 2 weeks - Talk to your doctor if: anxiety lasts over 2 weeks, trouble bonding with baby, withdrawing from other family members, thoughts of harming yourself or others Blood pressure and preeclampsia instructions -Please call if greater than 2 values are higher than: 150 systolic (the top number) or 100 diastolic (the bottom number). -Please go to the emergency room or labor and delivery triage if any value is higher than: 160 systolic (the top number) or 110 diastolic (the bottom number). -Please call if unrelenting headache (does not go away with rest or Tylenol or ibuprofen), changes in vision (spots, floaters, flashes of light), chest pain, shortness of breath, or right upper quadrant (liver) abdominal pain. Rosana Molina DO [facility] [phone] *Nothing in the Vagina for 6 weeks* *No strenuous activity* *No heavy lifting* *No tub baths until okay's by MD* Patient Instructions: Depression, Hemorrhage, DI for Labor and Delivery, Vaginal , DI for Pre-eclampsia, [facility] Post Discharge Instructions Print Language: Swedish Providers Primary Care Provider: Provider,Referral Admit Provider: Ab Constantino Attending Provider: Ab Constantino
== END 2025-05-09 14:12 | disposition home or self-care (01) | DRG 807 ==
LOC: OBOUT 01:34 → OB 01:34
PROVIDERS: Obstetrics & Gynecology; Admitting Provider Nurse Practitioner Obstetrics & Gynecology; Visit Provider Nurse Practitioner Obstetrics & Gynecology
DX: O41.1230 Chorioamnionitis, third trimester, not applicable or unspecified (principal); Z37.0 Single live birth; Z3A.38 38 weeks gestation of pregnancy; O99.214 Obesity complicating childbirth; E66.01 Morbid (severe) obesity due to excess calories; O77.0 Labor and delivery complicated by meconium in amniotic fluid; O69.89X0 Labor and delivery complicated by other cord complications, not applicable or unspecified; Z23 Encounter for immunization
CPT/HCPCS: 80053; 83605; 85025; 86592; 86850; 87040; J0290; J0736; J1580; J7120